=== PATIENT | female | born 1955 | race Caucasian/White ===

== ENCOUNTER 2017-11-28 14:35 | Outpatient (CLI) | payer BC | END 2017-11-28 14:36 | disposition home or self-care (01) | LOC: BICMAMMO 14:35 | PROVIDERS: ATTEND Obstetrics & Gynecology | DX: Z12.31 Encounter for screening mammogram for malignant neoplasm of breast (principal); Z85.3 Personal history of malignant neoplasm of breast; Z80.3 Family history of malignant neoplasm of breast | CPT/HCPCS: 77063; 77067 ==

== ENCOUNTER 2018-09-16 10:42 | Outpatient (CLI) | payer BC ==
--- NOTE | 2018-09-16 11:28 | BD ---
DEXA BONE SCAN: HISTORY: A 63-year-old. Evaluate for age-related osteoporosis. COMPARISON: Comparison made to previous exam from 09/16/2014. FINDINGS: LUMBAR SPINE BMD (g/cm2) T-SCORE Z-SCORE L1 0.96 -0.3 1.3 L2 0.98 -0.4 1.3 L3 1.03 -0.5 1.4 L4 1.07 0.1 2.0 COMPOSITE 1.01 -0.3 1.5 This is compatible with normal bone mineral density. LEFT HIP BMD (g/cm2) T-SCORE Z-SCORE FEMORAL NECK 0.71 -1.3 0.3 COMPOSITE 0.91 -0.3 1.0 Findings compatible with osteopenia. IMPRESSION: No significant evidence of osteoporosis seen. The patient's bone mineral density is within normal li mits and stable, unchanged since previous comparison exam. Transcribed Date/Time: 09/16/2018 11:28 AM
== END 2018-09-16 10:43 | disposition home or self-care (01) ==
LOC: BICMAMMO 10:42
PROVIDERS: ATTEND Internal Medicine Hematology & Oncology
DX: M85.89 Other specified disorders of bone density and structure, multiple sites (principal); C50.311 Malignant neoplasm of lower-inner quadrant of right female breast
CPT/HCPCS: 77080

== ENCOUNTER 2024-11-16 09:56 | Outpatient (CLI) | payer MEDICARE | END 2024-11-16 09:57 | disposition home or self-care (01) | LOC: BICMAMMO 09:56 | PROVIDERS: ATTEND Family Medicine | DX: Z78.0 Asymptomatic menopausal state (principal); E28.39 Other primary ovarian failure; M85.89 Other specified disorders of bone density and structure, multiple sites | CPT/HCPCS: 77080 ==